=== PATIENT | male | born 1965 | race American Indian/Alaskan Native ===

== ENCOUNTER 2018-08-14 11:54 | Emergency (ER) | payer MEDICAID ==
[2018-08-14 11:54] VITALS: BMI 31.9
[2018-08-14 11:57] VITALS: O2SAT 100
--- NOTE | 2018-08-14 13:12 | ED PDOC ---
HPI: Psych/Substance Abuse Time Seen by Provider: 08/14/18 12:11 Chief Complaint (Nursing): Med Refill Chief Complaint (Provider): Psychiatric evaluation; Med Refill History Per: Patient History/Exam Limitations: no limitations Onset/Duration Of Symptoms: Days (1x week) Current Symptoms Are (Timing): Still Present Associated Symptoms: Anxiety Additional Complaint(s): 52 year old male with past medical history of sciatica, anxiety, and chronic pain presents to the ED from the [facility] for a psychiatric evaluation. Patient reports having worsening anxiety for the past 1x week. Patient reports that he recently ran out of xanax, which he uses twice a day daily, and is requesting a medication refill. Patient is also requesting to speak with a social security benefits interviewer. Patient admits to snorting heroin x2 days ago in an attempt to "calm his nerves". Patient with an elevated blood pressure upon arrival to the ED. Patient states that he missed his clonidine dosage (0.2 mg PO) dosage today. (-) hallucinations, (-) suicidal ideation, (-) homicidal ideation. Otherwise: (-) physical complaints, (-) chest pain (-) SOB/cough (-) leg swelling (-) headache (-) fever, (-)dizziness(-) dyspnea, (-) vomiting, (-) patient intent of initiating a suicide attempt, (-) plan. PMD: Bert Liu MD Past Medical History Reviewed: Historical Data, Nursing Documentation, Vital Signs Vital Signs: Last Vital Signs Temp 98.7 F 08/14/18 11:55 Pulse 82 08/14/18 13:07 Resp 16 08/14/18 11:55 BP 148/110 H 08/14/18 13:07 Pulse Ox 100 08/14/18 11:55 KEVIN Report Viewed: Yes - Medical History PMH: Anxiety, Asthma, COPD, Depression, Emphysema, Fractures (LEFT ELBOW,LEFT KNEE.), HTN, Post Traumatic Stress Disorder, Chronic Pain Other PMH: sciatica - Surgical History Surgical History: No Surg Hx - Family History Family History: States: No Known Family Hx - Social History Current smoker - smoking cessation education provided: Yes (6-7 cigarettes daily) Drugs: Opiates (snorted heroin 2x days ago) - Home Medications Home Medications: Ambulatory Orders Medication Instructions Recorded RX: Arformoterol [Brovana] 15 mcg IH [id number] #1 neb 07/13/18 RX: Aspirin [Adult Aspirin] 1 tab PO DAILY #30 tablet. 07/13/18 RX: Budesonide [Pulmicort Respules] 0.5 mg IH [id number] #1 neb 07/13/18 RX: Famotidine [Pepcid] 40 mg PO HS #30 tab 07/13/18 RX: Ibuprofen [Motrin Tab] 200 mg PO Q6H PRN tab 07/13/18 RX: Lisinopril [Zestril] 50 mg PO DAILY #30 tab 07/13/18 RX: Methylprednisolone [Medrol 4 mg PO DAILY #21 mg 07/13/18 Dose Pack (21 tabs)] RX: Nicotine 14 mg/24 hr [Nicoderm 1 patch TD DAILY #30 patch 07/13/18 CQ] RX: cloNIDine [Catapres] 0.3 mg PO BID #60 tab 07/13/18 RX: amLODIPine [Norvasc] 10 mg PO 1130 tab 07/15/18 RX: clonazePAM [Klonopin] 1 mg PO Q6 PRN tab 07/15/18 Alprazolam [Xanax] 2 mg PO AMHS #14 tab 07/24/18 Paroxetine HCl [Paxil] 20 mg PO 14 #14 tablet 07/24/18 RX: Acetaminophen [Tylenol 325mg 650 mg PO Q6H PRN #30 tab 07/24/18 tab] RX: Albuterol/Ipratropium [Duoneb 3 ml IH [id number] #0 neb 07/24/18 3 mg/0.5 mg (3 ml) UD] RX: Arformoterol [Brovana] 15 mcg IH [id number] #1 neb 07/24/18 RX: Aspirin [Ecotrin] 81 mg PO DAILY #7 tabec 07/24/18 RX: Budesonide [Pulmicort Respules] 0.5 mg IH [id number] #1 neb 07/24/18 RX: Famotidine [Pepcid] 40 mg PO HS #7 tab 07/24/18 RX: Gabapentin [Neurontin] 300 mg PO TID #45 cap 07/24/18 RX: Ibuprofen [Motrin Tab] 600 mg PO Q6H PRN #30 tab 07/24/18 RX: Lisinopril [Zestril] 40 mg PO DAILY #7 tab 07/24/18 RX: Nicotine 14 mg/24 hr [Nicoderm 1 patch TD DAILY #14 patch 07/24/18 CQ] RX: Zolpidem [Ambien] 5 mg PO HS PRN #7 tab 07/24/18 RX: amLODIPine [Norvasc] 10 mg PO DAILY #7 tab 07/24/18 RX: cloNIDine [Catapres] 0.3 mg PO BID #14 tab 07/24/18 RX: hydroCHLOROthiazide [Microzide] 12.5 mg PO DAILY #7 cap 07/24/18 - Allergies Allergies/Adverse Reactions: Allergies Allergy/AdvReac Type Severity Reaction Status Date / Time No Known Allergies Allergy Verified 07/15/18 23:54 Review of Systems ROS Statement: Except As Marked, All Systems Reviewed And Found Negative Constitutional: Negative for: Fever Respiratory: Negative for: Shortness of Breath Gastrointestinal: Negative for: Vomiting Psych: Positive for: Anxiety. Negative for: Suicidal ideation, Other (homicidal ideation, hallucinations) Physical Exam - Reviewed Nursing Documentation Reviewed: Yes Vital Signs Reviewed: Yes - Physical Exam Comments: GENERAL APPEARANCE: Patient is awake, alert, oriented x 3, in no acute distress. SKIN: Warm, dry; (-) cyanosis ENMT: Mucous membranes moist. Airway patent: (-) stridor. NECK: Supple, FROM HEART AND CARDIOVASCULAR: (-) irregularity CHEST AND RESPIRATORY: (-) rales, (-) rhonchi, (-) wheezes; breath sounds equal. Respirations even and nonlabored. ABDOMEN: Soft, (-) distention, (-) tenderness, (-) guarding. NEURO AND PSYCH: Mental status as above. Affect: calm, cooperative. Answering questions appropriately. (-) facial asymmetry. Gait: steady. Speech: clear. - ECG O2 Sat by Pulse Oximetry: 100 (RA) Pulse Ox Interpretation: Normal Medical Decision Making Medical Decision Makin:11 Clinical impression: 52 year old male with anxiety and an elevated blood pressure reading. Initial plan: * crisis evaluation * clonidine 0.2 mg PO once * reevaluation 1340 Repeat BP: 150/94 Patient denies any complaints related to elevated BP reading in ED. Compliance with home medications stressed to patient. Per crisis evaluation, patient to be discharged with the diagnosis of Anxiety per Dr Abdul. Patient provided with follow up appt at the clinic. On re-evaluation, patient reports improvement of symptoms. On exam, patient remains AAOx3, in no acute distress. Vitals stable. Lab/Diagnostic results d/w the patient in great detail. Diagnosis of anxiety, elevated BP reading d/w the patient. Based on history, exam and diagnostic results, plan will be for outpatient follow up with PMD/clinic. Patient instructed to follow-up with pmd / referral provided / the clinic in 1- 2 days without fail. Return to the emergency room at any time for any new or worsening symptoms. Patient states he fully agrees with and understands discharge instructions. States that he agrees with the plan and disposition. Verbalized and repeated discharge instructions and plan. I have given the patient opportunity to ask any additional questions. Scribe Attestation: Documented byChary Ramos, acting as a scribe for Chary Bryant Provider Scribe Attestation: All medical record entries made by the Scribe were at my direction and personally dictated by me. I have reviewed the chart and agree that the record accurately reflects my personal performance of the history, physical exam, medical decision making, and the department course for this patient. I have also personally directed, reviewed, and agree with the discharge instructions and disposition. Disposition - Clinical Impression Clinical Impression: Anxiety, Elevated blood pressure reading - Patient ED Disposition Is Patient to be Admitted: No Counseled Patient/Family Regarding: Studies Performed, Diagnosis, Need For Followup - Disposition Referrals: [facility] [Outside] Bert Liu MD [Medical Doctor] - Disposition: Routine/Home Disposition Time: 13:40 Condition: STABLE Additional Instructions: The emergency medical care you received today was directed at your acute symptoms. If you were prescribed any medication, please fill it and take as directed. It may take several days for your symptoms to resolve. Return to the Emergency Department if your symptoms worsen, do not improve, or if you have any other problems. Please contact your doctor in 2 days for re-evaluation and follow up / or call one of the physicians/clinics you have been referred to that are listed on the Patient Visit Information form that is included in your discharge packet. Bring any paperwork you were given at discharge with you along with any medications y ou are taking to your follow up visit. Our treatment cannot replace ongoing medical care by a primary care provider (PCP) outside of the emergency department. Instructions: High Blood Pressure in Adults, Anxiety, Adult (DC), Medicines for High Blood Pressure, Hypertension (ED) Forms: [facility] (Albanian) Print Language: LIBYAN - POA Present On Arrival: None
[2018-08-14 14:14] VITALS: BP 150/94; PULSE 81; RESP 18; TEMP 98
== END 2018-08-14 14:17 | disposition home or self-care (01) ==
LOC: H.ER 11:54
DX: F41.9 Anxiety disorder, unspecified (principal); Z86.59 Personal history of other mental and behavioral disorders; F17.210 Nicotine dependence, cigarettes, uncomplicated; F43.10 Post-traumatic stress disorder, unspecified; G89.29 Other chronic pain; I10 Essential (primary) hypertension; J44.9 Chronic obstructive pulmonary disease, unspecified; Z76.0 Encounter for issue of repeat prescription; Z79.82 Long term (current) use of aspirin